=== PATIENT | female | born 1945 | race Asian ===

== ENCOUNTER 2018-03-22 10:38 | Emergency (ER) | payer OTHER ==
[~2018-03-22] VITALS: Ht 162.6 cm; Wt 72.6 kg
[2018-03-22 10:47] VITALS: BP 174/89
--- NOTE | 2018-03-22 10:47 | NUR ---
ED Nurse Note: PT BROUGHT IN BY AMBULANCE FROM HOME. AOX4. PT C/O NAUSEA AND MULTIPLE EPISODES OF VOMITING X LAST NIGHT. PT DENIES DIARRHEA. PT ALSO C/O DIZZINESS AND BLURRED VISION X LAST NIGHT. ACTIVE BOWEL SOUNDS IN ALL QUADRANTS. ABDOMEN NONDISTENDED AND NONTENDER TO PALPATION. LAST BM X THIS AM WHICH PT STATES WAS FORMED.
[2018-03-22] MEDS ORDERED: ADALAT10 MG ORAL (10:55)
--- NOTE | 2018-03-22 10:58 | Emergency Room Report ---
History of Present Illness General Chief Complaint: Dizziness Source: Patient, EMS Present Illness HPI Patient presents with reports of increased dizziness nausea vomiting Patient reports eating some food last night and soon after that having a sensation of this dizziness Denies any fevers denies any chest pain patient feels palpitations and uneasy however Has increased nausea also feels that her vision is getting blurry Denies any neck pain or photophobia denies any lower abdominal pain denies any diarrhea Denies any recent travel or trauma Allergies: Coded Allergies: OXYTETRACYCLINE (Verified Allergy, Unknown, 03/22/18) Patient History Past Medical History: see triage record Pertinent Family History: none Reviewed Nursing Documentation: PMH: Agreed; PSxH: Agreed Nursing Documentation-PMH Past Medical History: No History, Except For Hx Cardiac Problems: Yes Hx Hypertension: Yes Review of Systems All Other Systems: negative except mentioned in HPI Physical Exam Vital Signs Date Time Temp Pulse Resp B/P (MAP) Pulse Ox O2 Delivery O2 Flow Rate FiO2 03/22/18 10:36 97.9 70 25 208/103 98 Room Air Sp02 EP Interpretation: reviewed, normal General Appearance: mild distress - Acutely nauseated and dizzy has eyes closed Head: normocephalic, atraumatic Eyes: bilateral eye PERRL, bilateral eye EOMI ENT: normal pharynx Neck: supple Respiratory: lungs clear, no retraction, no accessory muscle use Cardiovascular #1: regular rate, rhythm Gastrointestinal: non tender, soft Genitourinary: no CVA tenderness Musculoskeletal: normal inspection Neurologic: alert, oriented x3, responsive Skin: normal color, no rash Lymphatic: no adenopathy Procedures Critical Care Time Critical Care Time 40 minutes for multiple re-evaluations diagnosis of acute/subacute CVA requiring high level of transfer, not including any procedural time Medical Decision Making Diagnostic Impression: Primary Impression: CVA (cerebrovascular accident) ER Course Patient is a fairly complex patient with multiple differential to consideration including but not limited to cardiac cardiopulmonary and vascular emergencies Given the patient's complaints of severe dizziness intracranial pathology also entertained CT head shows concerning findings of acute /Subacute CVA in the cerebellar region This correlates clinically with her dizziness Patient's last known well sometime was approximately 12 hours ago patient does not meet criteria for acute thrombolytic therapy Also remains awake alert with GCS 15 Case discussed with stroke team neurology at [facility] They will accept the patient at the facility Patient does not have any further intervention towards her blood pressure She was provided with aspirin and requires transfer for higher level of care Labs Test 03/22/18 11:04 White Blood Count 6.8 K/UL (4.8-10.8) Red Blood Count 4.87 M/UL (4.20-5.40) Hemoglobin 14.2 G/DL (12.0-16.0) Hematocrit 43.6 % (37.0-47.0) Mean Corpuscular Volume 89 FL (80-99) Mean Corpuscular Hemoglobin 29.2 PG (27.0-31.0) Mean Corpuscular Hemoglobin Concent 32.6 G/DL (32.0-36.0) Red Cell Distribution Width 12.2 % (11.6-14.8) Platelet Count 320 K/UL (150-450) Mean Platelet Volume 5.3 FL (6.5-10.1) Neutrophils (%) (Auto) 66.2 % (45.0-75.0) Lymphocytes (%) (Auto) 28.7 % (20.0-45.0) Monocytes (%) (Auto) 3.8 % (1.0-10.0) Eosinophils (%) (Auto) 0.6 % (0.0-3.0) Basophils (%) (Auto) 0.7 % (0.0-2.0) Sodium Level 138 MMOL/L (136-145) Potassium Level 3.1 MMOL/L (3.5-5.1) Chloride Level 100 MMOL/L (98-107) Carbon Dioxide Level 26 MMOL/L (21-32) Anion Gap 13 mmol/L (5-15) Blood Urea Nitrogen 13 mg/dL (7-18) Creatinine 0.8 MG/DL (0.55-1.30) Estimat Glomerular Filtration Rate mL/min (>60) Glucose Level 217 MG/DL (74-106) Calcium Level 9.4 MG/DL (8.5-10.1) Total Bilirubin 0.5 MG/DL (0.2-1.0) Aspartate Amino Transf (AST/SGOT) 30 U/L (15-37) Alanine Aminotransferase (ALT/SGPT) 41 U/L (12-78) Alkaline Phosphatase 64 U/L (46-116) Total Creatine Kinase 60 U/L (26-308) Creatine Kinase MB 0.6 NG/ML (0.0-3.6) Creatine Kinase MB Relative Index 1.0 Troponin I 0.001 ng/mL (0.000-0.056) Total Protein 8.0 G/DL (6.4-8.2) Albumin 3.5 G/DL (3.4-5.0) Globulin 4.5 g/dL Albumin/Globulin Ratio 0.8 (1.0-2.7) Lipase 156 U/L (73-393) EKG Diagnostic Results Rate: normal Rhythm: NSR ST Segments: other - Nonspecific ST, T wave changes Rhythm Strip Diag. Results EP Interpretation: yes Rate: 80 Rhythm: NSR, no PVC's, no ectopy Chest X-Ray Diagnostic Results Chest X-Ray Diagnostic Results : Chest X-Ray Ordered: Yes # of Views/Limited/Complete: 1 View Indication: Chest Pain EP Interpretation: Yes Interpretation: no consolidation, no effusion, no pneumothorax, other - Poor respiratory effort mild crowding bilaterally question mild congestion Impression: Other - Borderline cardiomegaly, mild congestion Electronically Signed by: Leonard Nieves DO CT/MRI/US Diagnostic Results CT/MRI/US Diagnostic Results : Impression CT headIMPRESSION: Focal low-attenuation in the right cerebellum concerning for ischemia, age indeterminant but possibly acute or subacute. Clinical correlation recommended. MRI may be obtained for more sensitive evaluation as clinically indicated. No evidence of acute intracranial hemorrhage. No shift of the midline structures. Atrophy and nonspecific periventricular hypoattenuation suggestive of chronic ischemic microvascular changes. Findings discussed with Leonard Nieves DO via telephone conversation 11:35 AM on 03/22/2018. Last Vital Signs Date Time Temp Pulse Resp B/P (MAP) Pulse Ox O2 Delivery O2 Flow Rate FiO2 03/22/18 10:36 97.9 70 25 208/103 98 Room Air Status: improved Disposition: XFER SHT-TRM HOSP Condition: Critical Leonard Nieves DO Mar 22, 2018 10:58
[2018-03-22 11:00] VITALS: BP 170/90
--- NOTE | 2018-03-22 11:05 | NUR ---
ED Nurse Note: XRAY AT BEDSIDE
--- NOTE | 2018-03-22 11:14 | NUR ---
ED Nurse Note: PT TO CT VIA CHAPIS
[2018-03-22 11:15] VITALS: BP 182/94
--- NOTE | 2018-03-22 11:25 | NUR ---
ED Nurse Note: PT BACK FROM CT VIA [facility]
[2018-03-22 11:30] VITALS: BP 168/83
[2018-03-22 11:36] LABS: BASOPHILS % (AUTO) 0.7 % (0.0-2.0); EOSINOPHILS % (AUTO) 0.6 % (0.0-3.0); HEMATOCRIT 43.6 % (37.0-47.0); HEMOGLOBIN 14.2 G/DL (12.0-16.0); LYMPHOCYTES % (AUTO) 28.7 % (20.0-45.0); MEAN CORPUSCULAR VOLUME 89 FL (80-99); MONOCYTES % (AUTO) 3.8 % (1.0-10.0); NEUTROPHILS % (AUTO) 66.2 % (45.0-75.0); PLATELET COUNT 320 K/UL (150-450); RED BLOOD COUNT 4.87 M/UL (4.20-5.40); RED CELL DISTRIBUTION WIDTH 12.2 % (11.6-14.8); WHITE BLOOD COUNT 6.8 K/UL (4.8-10.8)
--- NOTE | 2018-03-22 11:43 | Diagnostic Imaging Report ---
Indication: Dizziness, blurred vision, Technique: Continuous helical CT scanning of the head was performed utilizing automated exposure control without intravenous contrast material. Axial and coronal reconstructions were obtained. Comparison: None CT dose: Total DLP 1449.98 mGycm; CTDI vol 70.38 mGy Findings: There is focal low attenuation involving the superior cerebellum on the right (series 3 image #9; series 5 image #[id number]). Findings are concerning for ischemia, age indeterminate. There is no acute intracranial hemorrhage. No shift of the midline structures. The sulci, ventricles and cisterns are prominent, compatible with atrophy. Periventricular hypoattenuation is seen, a nonspecific finding most commonly related to sequela of chronic ischemic microvascular changes. Mastoid air cells are clear. Paranasal sinuses are clear. Imaged portions of the orbits unremarkable. No depressed calvarial fracture. IMPRESSION: Focal low-attenuation in the right cerebellum concerning for ischemia, age indeterminant but possibly acute or subacute. Clinical correlation recommended. MRI may be obtained for more sensitive evaluation as clinically indicated. No evidence of acute intracranial hemorrhage. No shift of the midline structures. Atrophy and nonspecific periventricular hypoattenuation suggestive of chronic ischemic microvascular changes. Findings discussed with Leonard Nieves DO via telephone conversation 11:35 AM on 03/22/2018. The CT scanner at [facility] is accredited by the [employer] and the scans are performed using protocols designed to limit radiation exposure to as low as reasonably achievable to attain images of sufficient resolution adequate for diagnostic evaluation.
--- NOTE | 2018-03-22 11:44 | Diagnostic Imaging Report ---
Indication: Pain Technique: XRAY Chest 1v Comparison: None Findings: Heart appears enlarged although this may be exaggerated by AP technique and low lung volumes.. There is haziness of the pulmonary vascularity. Streaky bibasilar opacities are noted. There is no pleural effusion or pneumothorax. There is osteopenia, degenerative change of the spine. No acute osseous normality. IMPRESSION: Limited exam with low lung volumes. Apparent cardiomegaly and haziness of the pulmonary vascularity which may be exaggerated by technique however the possibility of mild CHF no suitable. Streaky bibasilar opacities thought to related to atelectasis. Correlate clinically to exclude the possibility of pneumonia.
[2018-03-22 11:51] LABS: ANION GAP 13 mmol/L (5-15); BLOOD UREA NITROGEN 13 mg/dL (7-18); CALCIUM 9.4 MG/DL (8.5-10.1); CARBON DIOXIDE 26 MMOL/L (21-32); CHLORIDE 100 MMOL/L (98-107); CREATININE 0.8 MG/DL (0.55-1.30); POTASSIUM 3.1 MMOL/L (3.5-5.1); SODIUM 138 MMOL/L (136-145)
[2018-03-22 12:00] VITALS: BP 168/83
--- NOTE | 2018-03-22 12:00 | NUR ---
ED Nurse Note: pt was informed that she will be transfer to [facility]. Pt's contacted regaring pt's transfer.
[2018-03-22 12:06] LABS: ALANINE AMINOTRANSFERASE 41 U/L (12-78); ALBUMIN 3.5 G/DL (3.4-5.0); ALBUMIN/GLOBULIN RATIO 0.8 (1.0-2.7); ALKALINE PHOSPHATASE 64 U/L (46-116); ASPARTATE AMINO TRANSFERASE 30 U/L (15-37); BILIRUBIN,TOTAL 0.5 MG/DL (0.2-1.0); CKMB 0.6 NG/ML (0.0-3.6); CREATINE KINASE 60 U/L (26-308)
--- NOTE | 2018-03-22 12:25 | NUR ---
ED Nurse Note: PT ASYMPTOMATIC FOR STROKE. HR: 76, BP: 150/80. PT AOX4. GAZE APPROPRIATE, NO VISUAL FIELD LOSS. NO FACIAL DROPPING, NO ARM OR LEG DRIFT NOTED, SPEECH INTACT, AND SENSATION EQUAL AND INTACT BILATERALLY.
--- NOTE | 2018-03-22 12:45 | NUR ---
ED Nurse Note: CALLED [facility] TO GIVE REPORT. PER MARY, CALL BACK IN 30 MINUTES BECAUSE THE ROOM IS NOT READY. MARY MADE AWARE THAT PT IS BEING TRANSFERRED FOR STROKE BUT STILL STATES ROOM IS NOT READY AND TO CALL BACK.
[2018-03-22 13:04] VITALS: BP 157/75
--- NOTE | 2018-03-22 13:04 | NUR ---
ED Nurse Note: [facility], AT BEDSIDE. REPORT GIVEN TO EMS. [facility] CALLED FOR REPORT. REPORT GIVEN TO LARRY UMANA. PTS BP: 157/75, HR: 78, RR: 16 @ 96% O2 SAT ON RA. PT TAKEN TO [facility] VIA AMBULANCE ACCOMPANIED BY EMT AND WITH ALL BELONGINGS.
--- NOTE | 2018-03-23 12:42 | Cardiology Report ---
APPROVED REPORT EKG Measurement Heart [id number] Normal sinus rhythm Abnormal ECG
== END 2018-03-22 13:04 | disposition short-term general hospital (02) ==
LOC: EDBD 10:38 → EMR 11:15
DX: I63.9 Cerebral infarction, unspecified (principal); I10 Essential (primary) hypertension
CPT/HCPCS: 36415; 70450; 71045; 80053; 82550; 82553; 83690; 84484; 85025; 93005; 96374; 99291; J2405; J7040